=== PATIENT | male | born 1965 | race Caucasian/White ===

== ENCOUNTER 2021-08-06 00:16 | Emergency (ER) | payer BC ==
[2021-08-06 00:37] VITALS: BP 133/75; PULSE 57; TEMP 98.1; BMI 24.4
[2021-08-06] MEDS ORDERED: ACETAMINOPHEN 1000 MG/100 ML VIAL IVPB ONE ×2 (00:43→01:19)
[2021-08-06] MEDS ORDERED: LIDOCAINE 5% TOPICAL PATCH TP ONE (00:43)
[2021-08-06] MEDS ORDERED: ACETAMINOPHEN INJECTION 100 ML IVPB ONE (00:47)
[2021-08-06] MEDS ORDERED: LIDOCAINE 5% TOPICAL PATCH ONE (00:48)
[2021-08-06 01:03] LABS: BASO % 0.6 % (0-2.0); EOS % 3.1 % (0-4.5); HEMATOCRIT 41.9 % (35.4-49); LYMPH % 29.4 % (8-40); MCH 28.8 pg (25.7-33.7); MCHC 33.4 g/dl (32.0-35.9); MEAN CELL VOLUME 86.1 fl (80-96); MEAN PLT VOLUME 6.9 fl (7.5-11.1); NEUT % 58.9 % (42.8-82.8); PLATELET COUNT 306 10^3/uL (134-434); RBC 4.86 M/mm3 (4.00-5.60); RDW 13.7 % (11.9-15.9); WHITE BLOOD COUNT 11.1 K/mm3 (4.0-10.0)
[2021-08-06 01:21] LABS: CHLORIDE 114 mmol/L (98-107); SODIUM 141 mmol/L (136-145)
[2021-08-06 01:23] LABS: CALCIUM 8.2 mg/dL (8.5-10.1)
[2021-08-06 01:24] LABS: ALBUMIN 3.5 g/dl (3.4-5.0); ANION GAP 5 MMOL/L (8-16); BLOOD UREA NITROGEN 26.7 mg/dL (7-18); CO2 22 mmol/L (21-32); GLUCOSE,RANDOM 99 mg/dL (74-106)
[2021-08-06 01:27] LABS: CREATININE 0.9 mg/dL (0.55-1.3); SGOT/AST 36 U/L (15-37); SGPT/ALT 55 U/L (13-61)
[2021-08-06 01:28] LABS: BILIRUBIN,TOTAL 0.2 mg/dL (0.2-1)
[2021-08-06 01:29] LABS: TOT PROT 6.7 g/dl (6.4-8.2)
[2021-08-06 01:30] LABS: ALK PHOS 90 U/L (45-117)
[2021-08-06] MEDS ORDERED: METHOCARBAMOL 500 MG TABLET PO ONE (02:10)
[2021-08-06] MEDS ORDERED: KETOROLAC TROMETHAMINE 15 MG/ML VIAL IVPUSH ONE (02:11)
[2021-08-06] MEDS ORDERED: METHOCARBAMOL 500 MG TABLET ONE (02:25)
[2021-08-06] MEDS ORDERED: KETOROLAC TROMETHAMINE 15 MG/ML VIAL ONE (02:25)
[2021-08-06] MEDS ORDERED: LIDOCAINE PATCH REMOVAL MC SCH (22:00)
== END 2021-08-06 03:03 | disposition home or self-care (01) ==
LOC: JER 00:16
PROC: 3E0333Z Introduction of Anti-inflammatory into Peripheral Vein, Percutaneous Approach (ICD-10-PCS; principal; 2021-08-06)
PROC: 3E0333Z Introduction of Anti-inflammatory into Peripheral Vein, Percutaneous Approach (ICD-10-PCS; 2021-08-06)
DX: M54.2 Cervicalgia (principal); M79.602 Pain in left arm
CPT/HCPCS: 36415; 71046-TC-FY; 80053; 82550; 82553; 84484; 85025; 93005; 93010; 99285-25; J0131

== ENCOUNTER 2025-03-31 06:32 | Day surgery (SDC) | payer BC ==
[2025-03-19 09:27] VITALS: BMI 25.0
[2025-03-31 08:35] VITALS: TEMP 98.3
[2025-03-31 08:46] VITALS: RESP 18
[2025-03-31 09:13] VITALS: PULSE 65
[2025-03-31 09:20] VITALS: BP 114/82
== END 2025-03-31 09:20 | disposition home or self-care (01) ==
LOC: JASU-ENDO 06:32
PROVIDERS: ATTEND Internal Medicine Gastroenterology
PROC: 0DBN8ZX Excision of Sigmoid Colon, Via Natural or Artificial Opening Endoscopic, Diagnostic (ICD-10-PCS; principal; 2025-03-31 08:00)
DX: Z12.11 Encounter for screening for malignant neoplasm of colon (principal); K63.5 Polyp of colon
CPT/HCPCS: 88305-TC